=== PATIENT | male | born 1985 | race American Indian/Alaskan Native ===

== ENCOUNTER 2021-06-20 13:04 | Emergency (ER) | payer SELFPAY ==
[2021-06-20 13:17] VITALS: BP 141/84
[2021-06-20] MEDS ORDERED: MORPHINE 4 MG/1 ML INJ IV ONE (14:21)
[2021-06-20] MEDS ORDERED: ACETAMINOPHEN 325 MG TAB PO ONE (14:21)
[2021-06-20] MEDS ORDERED: ONDANSETRON 4 MG/2 ML INJ IV ONE (14:21)
--- NOTE | 2021-06-20 14:22 | Emergency Department Report ---
ED Back Pain/Injury HPI - General Chief Complaint: Pain General Stated Complaint: BACK AND LEG PAIN Time Seen by Provider: 06/20/21 14:06 Source: patient Limitations: No Limitations - History of Present Illness Initial Comments: 35-year-old obese male with a history of diabetes presents to the ER today with complaints of severe left lower back pain. Patient states that the pain started 2 days ago and has been constant and getting worse. He denies any particular injury or repetitive movement or strenuous activity recently. He states that the pain radiates down into his left leg. He states that worse when sitting, standing and now with walking. He denies any numbness or tingling down into the legs. He denies any saddle anesthesia, bowel or bladder incontinence. He denies any lower extremity weakness. He states that he has been having some dysuria and urinary frequency and some mild suprapubic abdominal discomfort. He denies any chest pain or shortness of breath. He denies any nausea, vomiting, fever or chills. He denies similar pain in the past. He states that his pain is currently 10 out of 10. MD Complaint: back pain -: Sudden, days(s) (2) - Related Data Previous Rx's Medication Instructions Recorded Last Taken Type HYDROcodone/APAP 5-325 [[place] 1 each PO Q6HR PRN #12 tablet 06/20/21 Unknown Rx 5/325] Ibuprofen [Motrin] 400 mg PO Q8H PRN #30 tablet 06/20/21 Unknown Rx Sulfamethoxazole/Trimethoprim 1 each PO BID #14 tablet 06/20/21 Unknown Rx [Bactrim DS TAB] methOCARBAMOL [Robaxin TAB] 750 mg PO Q8H PRN #30 tablet 06/20/21 Unknown Rx Allergies Allergy/AdvReac Type Severity Reaction Status Date / Time No Known Allergies Allergy Verified 06/20/21 13:12 ED Review of Systems ROS: Stated complaint: BACK AND LEG PAIN Other details as noted in HPI Constitutional: denies: chills, fever Respiratory: denies: cough, shortness of breath, wheezing Cardiovascular: denies: chest pain, palpitations Gastrointestinal: abdominal pain (Suprapubic abdominal discomfort). denies: nausea, vomiting, diarrhea, constipation, hematemesis, melena, hematochezia Genitourinary: dysuria, frequency. denies: hematuria, discharge, testicular pa in, testicular mass Musculoskeletal: back pain Skin: denies: rash, lesions, change in color, change in hair/nails, pruritus Neurological: denies: headache, weakness, numbness, paresthesias, confusion, abnormal gait, vertigo Psychiatric: denies: anxiety, depression, auditory hallucinations, visual meehan llucinations, homicidal thoughts, suicidal thoughts Hematological/Lymphatic: denies: easy bleeding, easy bruising ED Past Medical Hx - Past Medical History Previous Medical History?: No - Surgical History Past Surgical History?: No - Medications Home Medications: Home Medications Medication Instructions Recorded Confirmed Last Taken Type HYDROcodone/APAP 5-325 [[place] 1 each PO Q6HR PRN #12 tablet 06/20/21 Unknown Rx 5/325] Ibuprofen [Motrin] 400 mg PO Q8H PRN #30 tablet 06/20/21 Unknown Rx Sulfamethoxazole/Trimethoprim 1 each PO BID #14 tablet 06/20/21 Unknown Rx [Bactrim DS TAB] methOCARBAMOL [Robaxin TAB] 750 mg PO Q8H PRN #30 tablet 06/20/21 Unknown Rx ED Physical Exam - General Limitations: No Limitations General appearance: alert, anxious, in distress (Patient appears uncomfortable secondary to pain and he is unable to sit down due to the pain), obese - Head Head exam: Present: atraumatic, normocephalic, normal inspection - Neck Neck exam: Present: normal inspection, full ROM - Respiratory Respiratory exam: Present: normal lung sounds bilaterally. Absent: respiratory distress, wheezes, rales, rhonchi - Cardiovascular Cardiovascular Exam: Present: regular rate, normal rhythm, normal heart sounds - GI/Abdominal GI/Abdominal exam: Present: soft, tenderness (mild suprapubic abdominal tenderness without guarding or rebound). Absent: distended, guarding, rebound, rigid - Extremities Exam Extremities exam: Present: full ROM, other (Varicose veins noted to bilateral lower extremity, with chronic venous stasis dermatitis skin changes noted). Absent: tenderness, calf tenderness - Back Exam Back exam: Absent: full ROM (Range of motion of the lumbar spine decreased due to pain), CVA tenderness (R), CVA tenderness (L), paraspinal tenderness, vertebral tenderness, rash noted - Expanded Back Exam Expanded Back exam: Absent: saddle anesthesia Back exam: Sciatic Notch Tenderness: Left - Neurological Exam Neurological exam: Present: alert, oriented X3, CN II-XII intact, normal gait - Psychiatric Psychiatric exam: Present: normal affect, normal mood - Skin Skin exam: Present: intact ED Course Vital Signs 06/20/21 06/20/21 13:14 19:20 Temperature 98.6 F Pulse Rate 97 H 90 Respiratory 16 18 Rate Blood Pressure 141/84 [Left] O2 Sat by Pulse 97 98 Oximetry ED Medical Decision Making - Lab Data Result diagrams: 06/20/21 14:43 06/20/21 14:43 - Radiology Data Radiology results: report reviewed Patient: PERCY CLEARY MR#: [id number] : 1985 Acct:[id number] Age/Sex: 35 / M ADM Date: 06/20/21 Loc: ED Attending Dr: Ordering Physician: DEMETRICE SANDOVAL Date of Service: 06/20/21 Procedure(s): XR spine lumbosacral 2-3V Accession Number(s): [id number] cc: DEMETRICE SANDOVAL Fluoro Time In Minutes: LUMBAR SPINE 3 VIEWS 1607 INDICATION: severe lumbar radicular pain x several days, fell after the pain began and denies injury COMPARISON: None available. FINDINGS: Slight scoliosis is seen. Mild degenerative changes are seen without significant disc space narrowing. Lower facet arthritic changes are seen. No fractures or subluxations are noted. Signer Name: Zafar Ludwig MD Signed: 06/20/2021 4:32 PM Workstation Name: [id number] Transcribed By: GJ Dictated By: Zafar Ludwig MD Electronically Authenticated By: Zafar Ludwig MD Signed Date/Time: 06/20/211631 DD/ 30 TD/TT: - Medical Decision Making 35-year-old obese male with a history of diabetes presents to the ER today with complaints of severe left lower back pain. Patient states that the pain started 2 days ago and has been constant and getting worse. He denies any particular injury or repetitive movement or strenuous activity recently. He states that the pain radiates down into his left leg. He states that worse when sitting, standing and now with walking. He denies any numbness or tingling down into the legs. He denies any saddle anesthesia, bowel or bladder incontinence. He denies any lower extremity weakness. He states that he has been having some dysuria and urinary frequency and some mild suprapubic abdominal discomfort. He denies any chest pain or shortness of breath. He denies any nausea, vomiting, fever or chills. He denies similar pain in the past. He states that his pain is currently 10 out of 10. Patient appears to be feeling better, is currently sleeping in the recliner and is easily arousable. He reports that he is still having some pain in his low back and his left leg but not as bad as it was when he first came in after the IV morphine. All labs reviewed. X-ray of the lumbar spine reviewed. CBC unremarkable. CMP shows hyponatremia with a sodium of one thirty, mildly decreased CO2 at 18, elevated anion gap of 21, suspect that these changes could be more related to dehydration and his elevated glucose then true DKA at this time given his iglesia pH is normal. Patient was given IV fluids here in the ER. Also given that he is afebrile normal white count, I do not suspect any epidural abscess at this time. His urine is concerning for UTI but I do not suspect a kidney stone or pyelonephritis. Suspect patient's back pain is related to lumb ar radiculopathy/sciatica. His x-ray does show slight scoliosis and mild degenerative changes but otherwise nothing else acute. Patient will need to follow-up with Ortho for an outpatient MRI of his lumbar spine. At this time there is no indication for any additional testing, admission to the hospital, specialist consult. Discussed all lab results with patient. Recommend that he increase his water intake. He also admits that he has not taken his blood sugar medication today and recommend that he takes it as soon as you get home. He will be started on Bactrim for his UTI and given referral to outpatient orthospine specialist for further evaluation of his back pain. Patient expressed understanding of all instructions and agree with plan. He understands that if at any point his symptoms worsens to return immediately to the ER. Critical care attestation.: If time is entered above; I have spent that time in minutes in the direct care of this critically ill patient, excluding procedure time. ED Disposition Clinical Impression: Sciatica of left side, UTI (urinary tract infection) Disposition: 01 HOME / SELF CARE / HOMELESS Is pt being admited?: No Does the pt Need Aspirin: No Condition: Stable Instructions: Urinary Tract Infection, Adult, [id number], Sciatica Additional Instructions: I recommend that you take the motrin, the norco and the robaxin as prescribed to help with pain. Also take the Bactrim as prescribed to help with your UTI. I recommend that you continue taking your Metformin at home for your blood sugar. Increase your water intake. Most importantly I recommend follow-up with the orthospine specialist listed in your discharge instructions for outpatient MRI of your lumbar spine. Also follow-up closely with your PCP. Return to the ER if your symptoms changes or worsens in any way. Prescriptions: Sulfamethoxazole/Trimethoprim [Bactrim DS TAB] 1 each PO BID #14 tablet Ibuprofen [Motrin] 400 mg PO Q8H PRN #30 tablet PRN Reason: pain HYDROcodone/APAP 5-325 [[place] 5/325] 1 each PO Q6HR PRN #12 tablet PRN Reason: Pain methOCARBAMOL [Robaxin TAB] 750 mg PO Q8H PRN #30 tablet PRN Reason: Muscle Spasm Referrals: PILY BROWER MD [Staff Physician] - 3-5 Days [facility] [Provider Group] - 3-5 Days [facility] [Provider Group] - 3-5 Days Forms: Work/School Release Form(ED) Time of Disposition: 18:23
[2021-06-20 15:11] LABS: Bilirubin,Urine NEG (Negative); Blood,Urine SM (Negative); Color,Urine Yellow (Yellow); Mucus,Urine FEW /HPF; Protein,Urine <15 mg/dL mg/dL (Negative); Urobilinogen,Urine < 2.0 mg/dL (<2.0)
[2021-06-20 16:04] LABS: Alanine Aminotransferase 31 units/L (7-56); Albumin 3.6 g/dL (3.9-5); Blood Urea Nitrogen 8 mg/dL (9-20); Calcium 8.4 mg/dL (8.4-10.2); Hemolysis Index 227
[2021-06-20 16:18] LABS: BUN/Creatinine Ratio 16
--- NOTE | 2021-06-20 16:37 | XRay Report ---
LUMBAR SPINE 3 VIEWS 1607 INDICATION: severe lumbar radicular pain x several days, fell after the pain began and denies injury COMPARISON: None available. FINDINGS: Slight scoliosis is seen. Mild degenerative changes are seen without significant disc space narrowing. Lower facet arthritic changes are seen. No fractures or subluxations are noted. Signer Name: Zafar Ludwig MD Signed: 06/20/2021 4:32 PM Workstation Name: [id number]
[2021-06-20] MEDS ORDERED: SODIUM CHLORIDE 0.9% 1000 ML 1,000 ML IV ONE (16:51)
[2021-06-20 18:08] LABS: Hematocrit 46.4 % (35.5-45.6); Hemoglobin 15.1 gm/dl (11.8-15.2); Mean Corpuscular HGB Conc 33 % (32-34); Mean Corpuscular Volume 94 fl (84-94); Platelet Count 237 K/mm3 (140-440); Red Blood Count 4.93 M/mm3 (3.65-5.03); Red Cell Distribution Width 12.2 % (13.2-15.2)
== END 2021-06-20 19:20 | disposition home or self-care (01) ==
LOC: ED 13:04
DX: M54.42 Lumbago with sciatica, left side (principal); N39.0 Urinary tract infection, site not specified
CPT/HCPCS: 36415; 72100; 80053; 81001; 82805; 82962; 85025; 87086; 96361; 96374; 96375; 99284; J2270; J2405; J7030